=== PATIENT | female | born 1960 | race Caucasian/White ===

== ENCOUNTER 2024-02-17 09:14 | Emergency (ER) | payer BC, SELFPAY ==
[2024-02-17] VITALS (13 sets, daily range): BP systolic 108–146; BP diastolic 53–88; PULSE 61–89; RESP 12–20; TEMP 36.5–36.9; O2SAT 94–99
--- NOTE | ~2024-02-17 | XR_ITS ---
Clinical Indication: Chest pain PA and lateral views of the chest: Comparison: None Findings: The lungs are clear, without evidence of focal consolidation or pleural effusion. Cardiome diastinal silhouette is within normal limits. Bones and soft tissues are unremarkable. Impression: Normal chest. Reviewed, dictated and finalized at location . Impression: Normal chest.
--- NOTE | ~2024-02-17 | CT_ITS ---
EXAMINATION: CT abdomen pelvis w con DATE: 02/17/2024 13:57 INDICATION: Abdominal pain TECHNIQUE: Computed tomography (CT) of the abdomen and pelvis was performed with 100 mL Omnipaque-350 intravenous contrast. Automated exposure control and iterative reconstruction technique were employe d. The dose-length product was 519.63 mGy-cm. COMPARISON: None FINDINGS: Minimal dependent atelectasis bilateral lower lungs. Calcified right hilar and mediastinal lymph node s diffuse scattered splenic calcified lesions, all consistent with old granulomatous disease. Heart size is normal. Atherosclerotic coronary artery calcium. No pericardial or pleural effusion. 12 mm he patic cyst. Gallbladder, pancreas, bilateral adrenal glands and right kidney are normal. 4 mm low-att enuation left renal cyst. There are few scattered colonic diverticula without adjacent fat stranding to suggest diverticulitis. Small bowel and appendix are normal. Bladder, anteverted uterus and bilate ral adnexa are unremarkable. No free intraperitoneal gas or fluid. No pathologically enlarged abdomin al or pelvic lymphadenopathy. Moderate lumbar and lower thoracic spondylosis. IMPRESSION: 1. No acute intra-abdominal/pelvic process. Reviewed, dictated and finalized at location A.
--- NOTE | 2024-02-17 11:13 | ECG_ITS ---
Test Date: 2024-02-17 11:17:43 Measurements Intervals [place] Rate: 67 P: 34 NE: 151 QRS: 9 QRSD: 92 T: 38 QT: 378 QTc: 400 Interpretive Statements SINUS RHYTHM WITHIN NORMAL LIMITS No previous ECG available for comparison Electronically Signed On 02-18-2024 07:22:50 CDT by Vic Ramirez M.D.
--- NOTE | 2024-02-17 11:52 | ED.GENADULT ---
HPI - General Adult General Chief complaint: Unspecified Stated complaint: multiple complaints Time Seen by Provider: 02/17/24 11:14 Source: patient and family Mode of arrival: ambulatory Limitations: no limitations History of Present Illness HPI narrative: Pt is a 63-year-old female who presents to the ER with complaints of chest and abdominal pain. She reports she has a history of pleurisy. Pt reports her symptoms have been occurring intermittently over the last two months, but this morning she felt as though they were getting worse. Pt endorses increased abdominal/chest pain that is relieved by stretching out on the floor and stretching. She reports she has been taking Colace lately, which has helped relieve her constipation. Pt denies headaches, weakness/tingling/numbness or shortness of breath. Related Data Allergies Allergy/AdvReac Type Severity Reaction Status Date / Time tetracycline Allergy Unknown Verified 02/17/24 09:20 Review of Systems Review of Systems: All systems reviewed & are unremarkable except as noted in HPI and below Exam Narrative: GENERAL: Well-appearing, well-nourished and in no acute distress. HEENT: Head normocephalic, atraumatic. Eyes pupils equal round and reactive to light, extraocular movements intact. NECK: Supple, normal range of motion, no JVD. No lymphadenopathy. CARDIAC: Regular rate and rhythm without murmurs, rubs or gallops. RESPIRATORY: Clear to auscultation bilaterally. No wheezes, rales or rhonchi. ABDOMEN: Soft, nontender, normoactive bowel sounds throughout, no guarding, no rebound. No masses appreciated. EXTREMITIES: Normal range of motion, no swelling, clubbing or other deformities. NEUROLOGICAL: Cranial nerves II through XII grossly intact, no focal deficits noted. Normal gait, normal speech. SKIN: Warm, dry, normal color, no rashes, no lesions. Course Vital Signs Vital signs: Vital Signs Temperature 36.5 C 02/17/24 09:15 Pulse Rate 89 02/17/24 09:15 Respiratory Rate 16 02/17/24 09:15 Blood Pressure 129/86 02/17/24 09:15 Pulse Oximetry 98 02/17/24 09:15 Oxygen Delivery Room Air 02/17/24 09:15 Temperature 36.5 C 02/17/24 09:15 Pulse Rate 65 02/17/24 15:49 Respiratory Rate 15 02/17/24 15:46 Blood Pressure 108/63 02/17/24 15:49 Pulse Oximetry 97 02/17/24 15:46 Oxygen Delivery Room Air 02/17/24 09:15 Fraction of Inspired Oxygen 97 02/17/24 11:09 Medical Decision Making MDM Narrative Medical decision making narrative: Pt is a 63-year-old female who presents to the ER with complaints of chest and abdominal pain. She reports she has a history of pleurisy. Pt reports her symptoms have been occurring intermittently over the last two months, but this morning she felt as though they were getting worse. Pt endorses increased abdominal/chest pain that is relieved by stretching out on the floor and stretching. She reports she has been taking Colace lately, which has helped relieve her constipation. Pt denies headaches, weakness/tingling/numbness or shortness of breath. Upon examination, pt has no abnormal findings. Will order blood work, urinalysis, and chest x-ray, then proceed with further testing according to what these results show. Patient's CMP indicates elevated total bilirubin, AST and ALT, so will proceed with an abdominal CT scan. Pt reports she takes Magnesium often because I want to poop. Will check pt's magnesium levels. Pt given 1L IV bolus of normal saline. Pt's magnesium was slightly elevated. CT scan showed No acute intra-abdominal/pelvic process but indicated a 12 mm hepatic cyst. These results were explained to pt and her . They were reassured that this was an incidental finding and shouldn't be reason for concern. Upon re-examination she reports feeling no differently than when she came in. Will proceed forward with orthostatic BPs and a COVID swab. If these tests are negative, then pt will be
[2024-02-17 12:45] LABS: Basophils Absolute Auto 0.1 K/mm3 (0.0-0.1); Basophils Percent Auto 0.9 % (0.2-1.2); Eosinophils Absolute Auto 0.2 K/mm3 (0-0.3); Eosinophils Percent Auto 3.2 % (0-4.4); Hematocrit 43.3 % (37.0-47.0); Hemoglobin 14.2 g/dL (12.0-15.0); Immature Granulocyte Absolute 0.02 K/mm3 (0.00-0.031); Immature Granulocyte Percent A 0.3 % (0-0.5); Lymphocytes Absolute Auto 1.79 K/mm3 (0.9-3.2); Lymphocytes Percent Auto 27.2 % (18.3-44.2); Mean Corpuscular HGB Conc 32.8 g/dl (32-36); Mean Corpuscular Hemoglobin 30.4 pg (26-34); Mean Corpuscular Volume 92.7 fl (80-100); Mean Platelet Volume 10.1 fl (7.4-10.4); Monocytes Absolute Auto 0.5 K/mm3 (0.1-0.6); Monocytes Percent Auto 7.1 % (2.6-8.5); Neutrophils Percent Auto 61.3 % (45.5-73.1); Platelet Count Result 237 k/mm3 (150-375); Red Blood Count 4.67 M/mm3 (4.2-5.4); Red Cell Distribution Width 12.9 % (11.5-14.5); White Blood Count 6.6 K/mm3 (4.5-10.0)
[2024-02-17 12:52] LABS: Add Urine Microscopic? NO; Appearance Urine Clear (Clear); Bilirubin Urine Negative (Negative); Blood Urine Negative (Negative); Color Urine Yellow (Yellow); Glucose Urine UA Negative (Negative); Ketones Urine 1+ mg/dL (Negative); Leukocyte Esterase Ur Negative LEU/UL (Negative); Nitrate Urine Negative (Negative); Protein Urine Negative (Negative); Specific Grav Ur 1.011 (1.001-1.035); Urobilinogen Urine 0.2 mg/dL (<2.0); pH Urine 5.5 (5.0-9.0)
[2024-02-17 13:00] LABS: INR 0.9; Prothrombin Time 13.1 Seconds (11.1-14.7)
[2024-02-17 13:08] LABS: Alanine Aminotransferase 37 U/L (6-35); Albumin Level 4.7 g/dL (3.5-5.1); Alkaline Phosphatase 67 U/L (38-126); Anion Gap 11 mmol/L (4-12); Aspartate Amino Transferase 45 U/L (14-36); Bilirubin,Total 1.4 mg/dL (0.2-1.3); Blood Urea Nitrogen 10 mg/dL (7-17); Calcium 9.7 mg/dL (8.4-10.2); Carbon Dioxide 26 mmol/L (22-30); Chloride 101 mmol/L (98-107); Estimated CRCL calculation 61 ml/min; Estimated Glomerular Filt Rate > 60; Glucose 89 mg/dL (65-110); Lipase 143 U/L (23-300); Potassium 3.9 mmol/L (3.4-5.0); Sodium 138 mmol/L (137-145)
[2024-02-17 13:17] LABS: NT Pro B Type Natriuretic Pept 37 pg/mL (19.9-100); Troponin I < 0.012 ng/mL (0.000-0.034)
[2024-02-17] MEDS: SODIUM CHLORIDE 0.9% IV 1,000 ML 999 ML IV CONT (13:39)
[2024-02-17 14:42] LABS: Magnesium 2.4 mg/dL (1.6-2.3)
[2024-02-17] MEDS: FAMOTIDINE 20 MG/2 ML VIAL IV PUSH (14:49)
[2024-02-17] MEDS: BELLADONNA ALK/PHENOB ELIX 10 ML, MAG HYDROX/ALUMINUM HYD/SIMETH 30 ML, LIDOCAINE HCL 2... PO (14:51)
--- NOTE | 2024-02-17 15:01 | ECG_ITS ---
Test Date: 2024-02-17 15:06:44 Measurements Intervals [place] Rate: 69 P: 36 CO: 169 QRS: 5 QRSD: 75 T: 29 QT: 381 QTc: 408 Interpretive Statements SINUS RHYTHM Compared to ECG 02/17/2024 11:17:43 No significant changes Electronically Signed On 02-18-2024 15:28:50 CDT by Keyona Doherty M.D.
[2024-02-17 15:35] LABS: Troponin I < 0.012 ng/mL (0.000-0.034)
[2024-02-17 16:49] LABS: Influenza A QL RT-PCR Negative (Negative); Influenza B QL RT-PCR Negative (Negative); RSV RNA, RT-PCR Negative (Negative); SARS-CoV-2 RNA PCR Negative (Negative)
== END 2024-02-17 18:04 | disposition home or self-care (01) ==
PROVIDERS: Emergency Provider Registered Nurse
DX: R07.9 Chest pain, unspecified (principal); Z20.822 Contact with and (suspected) exposure to COVID-19
CPT/HCPCS: 36415; 71046; 74177; 80053; 81003; 83690; 83735; 83880; 84484; 85025; 85380; 85610; 85730; 87637; 93005; 96361; 96374; 99284; A9270; J7030; Q9967